=== PATIENT | female | born 1940 | race Asian ===

== ENCOUNTER 2019-06-18 09:36 | Inpatient (IN) | payer OTHER, MEDICARE ==
[~2019-06-18] VITALS: Ht 157.5 cm; Wt 53.3 kg
[2019-06-18 10:26] LABS: BASOPHIL % 0.6 % (0-2); PLATELET COUNT 183 x10^3mcL (130-400); RED CELL DISTRIBUTION WIDTH 13.6 % (11.5-14.5)
[2019-06-18 10:42] LABS: CALCIUM 8.4 mg/dL (8.5-10.1); CARBON DIOXIDE 27.9 mmol/L (21-32); CHLORIDE SERUM 105 mmol/L (98-107); CREATININE SERUM 0.9 mg/dL (0.6-1.0); GLUCOSE SERUM 198 mg/dL (74-106); POTASSIUM SERUM 4.1 mmol/L (3.5-5.1); SODIUM SERUM 141 mmol/L (136-145)
[2019-06-18 10:47] LABS: ALKALINE PHOSPHATASE 79 U/L (46-116); ALT/SGPT 28 U/L (14-59); AST/SGOT 14 U/L (15-37); BILIRUBIN TOTAL 0.3 mg/dL (0.20-1.00); TOTAL PROTEIN, SERUM 6.6 g/dL (6.4-8.2)
[2019-06-18 11:13] LABS: ALBUMIN 3.2 g/dL (3.4-5.0)
[2019-06-18 15:02] LABS: T3 TOTAL 0.61 ng/mL
[2019-06-18 15:06] VITALS: BP 152/67
[2019-06-18 15:11] VITALS: Ht 157.5 cm; Wt 53.3 kg
[2019-06-18 15:25] LABS: FREE T4 0.93 ng/dL (0.76-1.46)
[2019-06-18 15:29] LABS: FREE THYROXINE INDEX 1.3 ug/dL (1.4-4.5); T4(THYROXINE) 3.4 ug/dL (4.7-13.3)
[2019-06-18 20:17] VITALS: BP 161/66
[2019-06-19 05:21] VITALS: BP 126/56
[2019-06-19 06:38] LABS: PLATELET COUNT 191 x10^3mcL (130-400); RED CELL DISTRIBUTION WIDTH 13.6 % (11.5-14.5)
[2019-06-19 06:52] LABS: CHLORIDE SERUM 104 mmol/L (98-107); CHOLESTEROL 150 mg/dL (<200); CREATININE SERUM 0.6 mg/dL (0.6-1.0); GLUCOSE SERUM 154 mg/dL (74-106); POTASSIUM SERUM 4.2 mmol/L (3.5-5.1); SODIUM SERUM 140 mmol/L (136-145); TRIGLYCERIDES 187 mg/dL (<150)
[2019-06-19 06:53] LABS: CHOLESTEROL/HDL RATIO 5.2; HDL CHOLESTEROL 29 mg/dL (40-60)
[2019-06-19 08:24] VITALS: BP 110/71
[2019-06-19 08:25] VITALS: BP 148/69
[2019-06-19 12:40] VITALS: BP 155/62
[2019-06-19 13:10] VITALS: BP 155/62
[2019-06-19] MEDS ORDERED: ZESTRIL20 MG PO (15:23)
[2019-06-19] MEDS ORDERED: FORTAMET500 M1 PO (15:24)
[2019-06-19] MEDS ORDERED: LOPRESSOR50 M1 PO (15:26)
[2019-06-19] MEDS ORDERED: ASPIRIN ADULT L81 M3 PO (15:26)
[2019-06-19] MEDS ORDERED: PRAVASTATIN SOD20 M1 PO (15:27)
[2019-06-19] MEDS ORDERED: NOVI SQ (15:28)
[2019-06-19] MEDS ORDERED: FELODIPINE2.5 MG PO (15:29)
[2019-06-19] MEDS ORDERED: LEVEMIR100 U/M1 SC (15:30)
[2019-06-19] MEDS ORDERED: DILTIAZEM HCL60 MG PO (15:31)
== END 2019-06-19 17:56 | disposition home or self-care (01) | DRG 198 ==
LOC: ED 09:36 → DU 14:04
PROVIDERS: Emergency Medicine; ADMIT Family Medicine
DX: I25.119 Atherosclerotic heart disease of native coronary artery with unspecified angina pectoris (principal); E11.65 Type 2 diabetes mellitus with hyperglycemia; I48.0 Paroxysmal atrial fibrillation; I11.9 Hypertensive heart disease without heart failure; R00.0 Tachycardia, unspecified; Z68.21 Body mass index [BMI] 21.0-21.9, adult; Z95.1 Presence of aortocoronary bypass graft; Z79.4 Long term (current) use of insulin; Z79.84 Long term (current) use of oral hypoglycemic drugs; Z86.73 Personal history of transient ischemic attack (TIA), and cerebral infarction without residual deficits
CPT/HCPCS: 82962; 83880; 84439; 97116-GP; G0378; J1644; Q0092